=== PATIENT | female | born 1975 | race Caucasian/White ===

== ENCOUNTER → 2018-05-01 09:03 | Outpatient (CLI) | payer OTHER, SELFPAY ==
--- NOTE | 2018-05-01 09:05 | BI_ITS ---
MAMMOGRAPHY - BILATERAL SCREENING REASON FOR EXAM: Female, 42 years old. Routine annual screening examination. PERTINENT HISTORY: Non-contributory. TECHNIQUE: Digital bilateral breast sheri (3D mammographic acquisition) in the CC and MLO projections. 2-D mediolateral oblique (MLO) and craniocaudad (CC) views of both breasts were obtained. CAD: Full Field Digital Mammography with Computer Added Detection was performed. COMPARISON: None. Baseline examination. FINDINGS: Breast Composition: There are scattered areas of fibroglandular density. There are no dominant masses or suspicious calcifications. No other significant abnormalities are identified. BI/SCREENING MAMM (CAD), BILAT IMPRESSION: Negative screening mammogram. Yearly followup mammogram recommended. (A) ASSESSMENT CATEGORY: BIRADS Category 1: Negative. A letter regarding these results will be sent to the patient by the facility within 30 days. Approximately 10% of breast cancers are not detected by mammography. A normal mammogram should not delay biopsy of a clinically suspicious abnormality. [id number] Electronically Signed: Binu Olmstead MD at 9:36 EST Tel [phone], Service support ,
== END ==
PROVIDERS: Family Provider Family Medicine; PCP Family Medicine; Visit Provider Nurse Practitioner Women's Health
DX: Z12.31 Encounter for screening mammogram for malignant neoplasm of breast (principal)
CPT/HCPCS: 77063; 77067

== ENCOUNTER → 2019-05-30 12:59 | Outpatient (CLI) | payer OTHER, SELFPAY ==
--- NOTE | 2019-05-30 13:10 | BI_ITS ---
MAMMOGRAPHY - BILATERAL SCREENING REASON FOR EXAM: Female, 43 years old. Routine annual screening examination. PERTINENT HISTORY: Non-contributory. TECHNIQUE: Digital bilateral breast willie (3D mammographic acquisition) in the CC and MLO projections. 2-D mediolateral oblique (MLO) and craniocaudad (CC) views of both breasts were obtained. CAD: Full Field Digital Mammography with Computer Added Detection was performed. COMPARISON: Comparison is made with prior study dated May 01, 2018. FINDINGS: Breast Composition: There are scattered areas of fibroglandular density. There are no dominant masses or suspicious calcifications. No other significant abnormalities are identified. There has been no significant change since the prior study. BI/SCREEN MAMM (CAD) W/WILLIE BILAT IMPRESSION: Stable bilateral screening mammogram. Yearly follow-up mammogram recommended. (A) ASSESSMENT CATEGORY: BIRADS Category 1: Negative. A letter regarding these results will be sent to the patient by the facility within 30 days. Approximately 10% of breast cancers are not detected by mammography. A normal mammogram should not delay biopsy of a clinically suspicious abnormality. [id number] Electronically Signed: Binu Olmstead, at 13:59 EST , Service support ,
== END ==
PROVIDERS: Family Provider Family Medicine; PCP Family Medicine; Referring Provider Nurse Practitioner Women's Health; Visit Provider Nurse Practitioner Women's Health
DX: Z12.31 Encounter for screening mammogram for malignant neoplasm of breast (principal)
CPT/HCPCS: 77063; 77067

== ENCOUNTER → 2020-05-31 07:41 | Outpatient (CLI) | payer OTHER, SELFPAY ==
[2019-05-30 13:41] VITALS: BMI 32.5
--- NOTE | 2020-05-31 07:44 | BI_ITS ---
MAMMOGRAPHY - BILATERAL SCREENING REASON FOR EXAM: Female, 44 years old. Routine annual screening examination. PERTINENT HISTORY: Non-contributory. TECHNIQUE: Digital bilateral breast willie (3D mammographic acquisition) in the CC and MLO projections. 2-D mediolateral oblique (MLO) and craniocaudad (CC) views of both breasts were obtained. CAD: Full Field Digital Mammography with Computer Added Detection was performed. COMPARISON: Comparison is made with prior study dated 05/30/2019 and 05/01/2018. FINDINGS: Breast Composition: There are scattered areas of fibroglandular density. There are no dominant masses or suspicious calcifications. No other significant abnormalities are identified. There has been no significant change since the prior study. BI/SCREEN MAMM (CAD) W/WILLIE BILAT IMPRESSION: Stable bilateral screening mammogram. Yearly follow-up mammogram recommended. (A) ASSESSMENT CATEGORY: BIRADS Category 1: Negative. A letter regarding these results will be sent to the patient by the facility within 30 days. Approximately 10% of breast cancers are not detected by mammography. A normal mammogram should not delay biopsy of a clinically suspicious abnormality. [id number] Electronically Signed: Binu Olmstead, at 8:59 EST , Service support ,
== END ==
PROVIDERS: PCP Family Medicine; Referring Provider Nurse Practitioner Women's Health; Visit Provider Nurse Practitioner Women's Health
DX: Z12.31 Encounter for screening mammogram for malignant neoplasm of breast (principal)
CPT/HCPCS: 77063; 77067

== ENCOUNTER → 2020-06-06 | Outpatient (CLI) | payer OTHER, SELFPAY ==
[2020-06-06 08:35] VITALS: BMI 33.7
[2020-06-09 15:09] LABS: HPV APTIMA, High Risk Negative (Negative)
== END | disposition home or self-care (01) ==
LOC: LABSPEC 13:04
PROVIDERS: PCP Family Medicine; Referring Provider Nurse Practitioner Women's Health; Visit Provider Nurse Practitioner Women's Health
DX: Z12.4 Encounter for screening for malignant neoplasm of cervix (principal)
CPT/HCPCS: 87624; 88175; G0145

== ENCOUNTER → 2021-06-10 08:01 | Outpatient (CLI) | payer OTHER, SELFPAY ==
[2020-06-06 08:35] VITALS: BMI 33.7
--- NOTE | 2021-06-10 08:04 | BI_ITS ---
MAMMOGRAPHY - BILATERAL SCREENING REASON FOR EXAM: Female, 45 years old. Routine annual screening examination. PERTINENT HISTORY: Non-contributory. TECHNIQUE: Digital bilateral breast willie (3D mammographic acquisition) in the CC and MLO projections. 2-D mediolateral oblique (MLO) and craniocaudad (CC) views of both breasts were obtained. CAD: Full Field Digital Mammography with Computer Added Detection was performed. COMPARISON: Comparison is made with prior study of 05/31/2020 and 05/30/2019. FINDINGS: Breast Composition: There are scattered areas of fibroglandular density. There are no dominant masses or suspicious calcifications. No other significant abnormalities are identified. There has been no significant change since the prior study. BI/SCRN MAMM (CAD)W/WILLIE BILAT IMPRESSION: Stable bilateral screening mammogram. Yearly follow-up mammogram recommended. (A) ASSESSMENT CATEGORY: BIRADS Category 1: Negative. A letter regarding these results will be sent to the patient by the facility within 30 days. Approximately 10% of breast cancers are not detected by mammography. A normal mammogram should not delay biopsy of a clinically suspicious abnormality. [id number] Electronically Signed: Binu Olmstead MD at 9:19 EST , Service support ,
== END ==
PROVIDERS: PCP Family Medicine; Referring Provider Nurse Practitioner Women's Health; Visit Provider Nurse Practitioner Women's Health
DX: Z12.31 Encounter for screening mammogram for malignant neoplasm of breast (principal)
CPT/HCPCS: 77063; 77067

== ENCOUNTER → 2022-08-19 | Outpatient (CLI) | payer OTHER, SELFPAY ==
--- NOTE | 2022-08-19 07:55 | BI_ITS ---
MAMMOGRAPHY - BILATERAL SCREENING REASON FOR EXAM: Female, 46 years old. Routine annual screening examination. PERTINENT HISTORY: Non-contributory. TECHNIQUE: Digital bilateral breast willie (3D mammographic acquisition) in the CC and MLO projections. 2-D mediolateral oblique (MLO) and craniocaudad (CC) views of both breasts were obtained. CAD: Full Field Digital Mammography with Computer Added Detection was performed. COMPARISON: Comparison is made with prior study dated 06/10/2021 and 05/31/2020. FINDINGS: Breast Composition: There are scattered areas of fibroglandular density. There are no dominant masses or suspicious calcifications. No other significant abnormalities are identified. There has been no significant change since the prior study. BI/SCRN MAMM (CAD)W/WILLIE BILAT IMPRESSION: Stable bilateral screening mammogram. Yearly follow-up mammogram recommended. (A) ASSESSMENT CATEGORY: BIRADS Category 1: Negative. A letter regarding these results will be sent to the patient by the facility within 30 days. Approximately 10% of breast cancers are not detected by mammography. A normal mammogram should not delay biopsy of a clinically suspicious abnormality. [id number] Electronically Signed: Binu Olmstead MD at 8:52 EST ,
== END | disposition home or self-care (01) ==
PROVIDERS: PCP Family Medicine; Visit Provider Nurse Practitioner Women's Health
DX: Z12.31 Encounter for screening mammogram for malignant neoplasm of breast (principal)
CPT/HCPCS: 77063; 77067

== ENCOUNTER → 2023-08-24 | Outpatient (CLI) | payer OTHER, SELFPAY ==
--- NOTE | 2023-08-24 08:12 | BI_ITS ---
MAMMOGRAPHY - BILATERAL SCREENING REASON FOR EXAM: Female, 47 years old. Routine annual screening examination. PERTINENT HISTORY: Non-contributory. TECHNIQUE: Digital bilateral breast willie (3D mammographic acquisition) in the CC and MLO projections. 2-D mediolateral oblique (MLO) and craniocaudad (CC) views of both breasts were obtained. CAD: Full Field Digital Mammography with Computer Added Detection was performed. COMPARISON: Comparison is made with prior study dated August 19, 2022 and June 10, 2021. FINDINGS: Breast Composition: There are scattered areas of fibroglandular density. There are no dominant masses or suspicious calcifications. No other significant abnormalities are identified. There has been no significant change since the prior study. BI/SCRN MAMM (CAD)W/WILLIE BILAT IMPRESSION: Stable bilateral screening mammogram. Yearly follow-up mammogram recommended. (A) ASSESSMENT CATEGORY: BIRADS Category 1: Negative. A letter regarding these results will be sent to the patient by the facility within 30 days. Approximately 10% of breast cancers are not detected by mammography. A normal mammogram should not delay biopsy of a clinically suspicious abnormality. [id number] Electronically Signed: Binu Olmstead MD at 10:55 EST ,
--- OUTSIDE RECORDS SUMMARY | 2023-08-24 08:39 | XMS RPT_ITS | CCD ---
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 Role Phone Cecil LYNN, Amna Payne Unavailable OBDULIO IBARRA Attending Unavailable DALLAS, OBDULIO Primary Care Unavailable DALLASOBDULIO Admitting Unavailable DALLAS, OBDULIO PAC Consulting Unavailable PROVIDER, UNKNOWN Consulting Unavailable Medications Completed/Discontinued Medications Medication Drug Class(es) Dates Sig (Normalized) Sig (Original) pravastatin sodium 40 mg oral tablet (4 sources) HMG-CoA Reductase Inhibitor Start: 03-25-2017 PRAVACHOL 40 MG TABS PRAVASTATIN SODIUM [id number] Amna Jacob NP Problems Active Problems Problem Classification Problem Date Documented Date Episodic/Chronic Disorders of lipid metabolism (1 source) Mixed hyperlipidemia; Translations: [Mixed hyperlipidemia] Onset: 06-05-2023 Chronic Other aftercare (1 source) Other nursing home (current) drug therapy; Translations: [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] Onset: 06-05-2023 Episodic Unclassified (2 sources) Gynecologic examination ; Translations: [Encounter for gynecological examination (general) (routine) without abnormal findings] Onset: 03-25-2017 03-25-2017 Past or Other Problems Problem Classification Problem Date Documented Da te Episodic/Chronic Other infections (4 sources) H/O: viral illness; Translations: [Personal history of other infectious and parasitic diseases] Onset: 03-25-2017 03-25-2017 Episodic Results Test Name Value Interpretation Reference Range Facil ity Vital Signs Date Time Vital Sign Value Performing Clinician Facility 03-25-2017 13:37-0400 BMI (Body Mass Index) 30.53 kg/m2 Amna Jacob NP [facility] 03-25-2017 13:37-0400 Body Temperature 98 [degF] Amna Jacob [facility] 03-25-2017 13:37-0400 Body Temperature 98.01 [degF] Amna Jacob [facility] 03-25-2017 13:37-0400 BP Diastolic 82 mm[Hg] Amna Jacob NP [facility] 03-25-2017 13:37-0400 BP Systolic 123 mm[Hg] Amna Jacob [facility] 03-25-2017 13:37-0400 Height 167.64 cm Amna Jacob NP [facility] 03-25-2017 13:37-0400 Pulse (Heart Rate) 79 /min Amna [facility] 03-25-2017 13:37-0400 Respiratory Rate 16 /min Amna Jacob NP [facility] 03-25-2017 13:37-0400 Weight 85.82 kg Amna Jacob NP [facility] Encounters Encounter Date Encounter Type Care Provider Facility Start: 06-05-2023 End: 06-05-2023 ambulatory [facility] Procedures Date Procedure Procedure Detail Performing Clinician Start: 03-25-2017 Gynecologic examination Routine gynecological examination Amna Jacob NP Start: 03-25-2017 End: 03-25-2017 Documentation of current medications Amna Jacob NP Plan of Treatment Date Care Activity Detail Author Start: 03-25-2017 End: 03-25-2017 Appointment [facility] Payers Date Payer Category Payer Unknown [id number] Unknown [id number] Summary Purpose Family History No Family History Records Found Advance Directives No Advanced Directives Records Found Additional Source Comments INFORMATION SOURCE (unrecogn ized section and content) FOR RECORDS PERTAINING TO PATIENTS WHO ARE OR HAVE BEEN ENROLLED IN A CHEMICAL DEPENDENCY/SUBSTANCEABUSE PROGRAM, SOME INFORMATION MAY BE OMITTED. This clinical summary was aggregated from multiple sources. Caution should be exercised in using it in the provision of clinical care. This summary normalizes information from multiple sources, and as a consequence, information in this document may materially change the coding, format and clinical context of patient data. In addition, data may be omitted in some cases. CLINICAL DECISIONS SHOULD BE BASED ON THE PRIMARY CLINICAL RECORDS. [facility]. provides no warranty or guarantee of the accuracy or completeness of information in this document.
== END | disposition home or self-care (01) ==
LOC: OPBI 08:12
PROVIDERS: PCP Family Medicine; Referring Provider Nurse Practitioner Women's Health; Visit Provider Nurse Practitioner Women's Health
DX: Z12.31 Encounter for screening mammogram for malignant neoplasm of breast (principal)
CPT/HCPCS: 77063; 77067

== ENCOUNTER → 2024-07-19 | Outpatient (CLI) | payer OTHER, SELFPAY ==
--- NOTE | 2024-07-19 07:43 | NM_ITS ---
CLINICAL: 48-year-old female with history of thyroid nodularity. I-123 THYROID UPTAKE and SCAN COMPARISON: None available FINDINGS: The patient was administered a 331 uCi I-123 capsule by mouth. The 4-hour I-123 radioactive iodine thyroidal uptake was calculated to be 27.3 % (normal 5 to 25 %). The 24-hour I-123 radioactive iodine thyroidal uptake was calculated to be 42.3 % (normal 5 to 40 %). The I-123 thyroid scan demonstrates homogeneous radiopharmaceutical concentration throughout both lobes of a vaguely U-shaped thyroid gland. There are no colloidal parenchymal hypofunctioning-cold nodules noted in either lobe of the thyroid gland. The right lobe is larger than left. NM/Thyroid Uptake Single or Mult IMPRESSION: 1. ABNORMAL ELEVATED 4- and 24-hour I-123 radioactive iodine thyroidal uptakes. 2. The I-123 thyroid scan in conjunction with the iodine uptake values, is most consistent with the presence of a low-grade diffuse toxic goiter. Correlation with in vitro thyroid function studies is recommended if not previously obtained. Electronically Signed: James Quinn DO at 11:03 EST ,
== END | disposition home or self-care (01) ==
LOC: NM 07:43
PROVIDERS: PCP Family Medicine; Referring Provider Internal Medicine Endocrinology, Diabetes & Metabolism; Visit Provider Internal Medicine Endocrinology, Diabetes & Metabolism
DX: E05.20 Thyrotoxicosis with toxic multinodular goiter without thyrotoxic crisis or storm (principal)
CPT/HCPCS: 78012; A9516

== ENCOUNTER → 2024-08-15 | Outpatient (CLI) | payer OTHER, SELFPAY ==
[2024-08-15 18:03] LABS: Free T3 2.3 pg/mL (2.18-3.98); T4 Free Direct 0.57 ng/dL (0.76-1.46); Thyroid Stim Hormone (TSH) 0.059 uIU/mL (0.358-3.740)
== END | disposition home or self-care (01) ==
LOC: LAB 16:13
PROVIDERS: PCP Family Medicine; Referring Provider Internal Medicine Endocrinology, Diabetes & Metabolism; Visit Provider Internal Medicine Endocrinology, Diabetes & Metabolism
DX: E05.20 Thyrotoxicosis with toxic multinodular goiter without thyrotoxic crisis or storm (principal)
CPT/HCPCS: 36415; 84439; 84443; 84481

== ENCOUNTER → 2024-08-25 | Outpatient (CLI) | payer OTHER, SELFPAY ==
--- NOTE | 2024-08-25 07:25 | BI_ITS ---
PROCEDURE: SCRN MAMM (CAD)W/WILLIE BILAT REASON FOR EXAM: F, Age 48 y/o, no family history. Routine mammographic follow-up. TECHNIQUE: Bilateral screening digital breast tomosynthesis with 2D and 3D images. Computer aided detection. COMPARISON: Prior exam(s) dating back to August 24, 2023.. FINDINGS: There are scattered areas of fibroglandular density. Stable examination. No suspicious masses, areas of developing architectural distortion, or suspicious calcifications. BI/SCRN MAMM (CAD)W/WILLIE BILAT IMPRESSION: BI-RADS 1: NEGATIVE. RECOMMEND ANNUAL MAMMOGRAPHIC SCREENING. Follow-up code: Routine Follow-up The patient will be notified of the results by letter. Reading Location: [id number]
[2024-08-29 19:08] LABS: HPV APTIMA, High Risk Negative (Negative)
== END | disposition home or self-care (01) ==
LOC: OPBI 07:24
PROVIDERS: PCP Family Medicine; Referring Provider Nurse Practitioner Women's Health; Visit Provider Nurse Practitioner Women's Health
DX: Z12.31 Encounter for screening mammogram for malignant neoplasm of breast (principal)
CPT/HCPCS: 77063; 77067; 87624; 88175; G0145

== ENCOUNTER → 2024-09-19 | Outpatient (CLI) | payer OTHER, SELFPAY ==
[2024-09-19 18:55] LABS: Free T3 2.8 pg/mL (2.18-3.98); Thyroid Stim Hormone (TSH) 0.631 uIU/mL (0.300-4.200)
== END | disposition home or self-care (01) ==
LOC: LAB 14:23
PROVIDERS: PCP Family Medicine; Referring Provider Internal Medicine Endocrinology, Diabetes & Metabolism; Visit Provider Internal Medicine Endocrinology, Diabetes & Metabolism
DX: E05.20 Thyrotoxicosis with toxic multinodular goiter without thyrotoxic crisis or storm (principal)
CPT/HCPCS: 36415; 84439; 84443; 84481

== ENCOUNTER → 2024-10-28 | Outpatient (CLI) | payer OTHER, SELFPAY ==
[2024-10-28 10:45] LABS: Vitamin D,25 Hydroxy 41.1 ng/mL (30-100)
[2024-11-01 17:08] LABS: Thyroid Stim Immunoglob <0.10 IU/L (0.00-0.55)
== END | disposition home or self-care (01) ==
LOC: LAB 09:11
PROVIDERS: PCP Family Medicine; Referring Provider Surgery; Visit Provider Surgery
DX: E05.20 Thyrotoxicosis with toxic multinodular goiter without thyrotoxic crisis or storm (principal)
CPT/HCPCS: 36415; 82306; 84445

== ENCOUNTER 2024-11-10 15:56 | Observation (INO) | payer OTHER, SELFPAY ==
[2024-11-10] VITALS (20 sets, daily range): BP systolic 127–176; BP diastolic 63–155; PULSE 76–136; RESP 14–18; TEMP 36.3–37.4; O2SAT 92–100; BMI 33.3
[2024-11-10 09:57] LABS: Internal QC Validated? YES +Cl - CLEAR BKGD
[2024-11-10 09:58] LABS: Pregnancy, Urine Negative Negative
[2024-11-10] MEDS: Lactated Ringers 1,000 ML 15 ML IV (10:10)
--- NOTE | 2024-11-10 10:20 | PCM.PRE.AN2 ---
ASA Classification* ASA Classification ASA Classification: 2 Assessment & Plan Anesthesia* Anesthesia Assessment Anesthesia Assessment: Discussed sedation and/or anesthesia options, risks, benefits, and alternatives with patient/parents/legal guardian/POA. Questions invited. The patient/parents/legal guardian/POA seems to understand and agrees to proceed with anesthesia plan. Reviewed the physical assessment, medical history, allergy history and patient home medications list prior to surgery/procedure/anesthetic and documented any changes. Performed airway and anesthesia risk assessments. Anesthesia Type Anesthesia Type: General History Source History Obtained from:: Patient and Chart Anesthesia Focused Assessment* Temperature: 99.3 F Pulse Rate: 76 Blood Pressure: 144/79 Respiratory Rate: 18 Pulse Ox: 100 Oxygen Delivery Method: Room Air Airway Assessment Mouth opens: >3 cm Mallampati Score: III Teeth Condition: Intact Focused Labs Anesthesia Preop lab: CBC CHEMISTRY TSH 0.631 uIU/mL (0.300-4.200) 09/19/24 14:34 09/19/24 COAG Urine Test Negative Negative 11/10/24 09:48 11/10/24 [facility] Clinic Negative 04/01/18 11:27 04/01/18 Pre-Assessment Diagnosis/Proposed Procedure Planned Operative Procedure(s): Thyroidectomy-total with intraoperative nerve monitoring Anesthesia History Anesthesia History - almond pan finisher: Anesthesia History - almond pan finisher Hx Hospitalization No 11/01/24 10:11 Any Problems With Anesthesia No 11/01/24 10:11 Cholinesterase deficiency No 11/01/24 10:11 You/Your Family Experience No 11/01/24 10:11 fever (hyperthermia) with Relationship Recent Exposure to Contagious No 11/10/24 10:05 Disease Does patient have nerve No 11/01/24 10:11 stimulator Patient instructed to have device shut off --Does patient have Pacemaker No 11/10/24 10:05 or ICD? When Was Last Pacemaker Check QUESTION #4 FULL TEXT: You/Your Family Experience fever (hyperthermia) with Anesthesia Last Oral Intake Last Oral intake: Last Oral Intake NPO since 21:00 11/10/24 10:05 Meds taken in AM with sips of No 11/10/24 10:05 water? Meds patient instructed to take am of surgery PONV PONV - almond pan finisher: PONV - almond pan finisher Female Yes 11/01/24 10:11 HX of Motion Sickness No 11/01/24 10:11 HX of N/V After Surgery No 11/01/24 10:11 Non-Smoker Yes 11/01/24 10:11 Duration of Surgery greater No 11/01/24 10:11 than 60 minutes Number of Risk Factors 2 11/01/24 10:11 PONV Score Moderate Risk 11/01/24 10:11 Height & Weight Height & Weight: Anesthesia: Height & Weight Height 5 ft 5 in 11/10/24 10:05 Weight: 91 kg 11/10/24 10:05 Body Mass Index (BMI) 33.3 11/10/24 10:05 Respiratory Assessment Respiratory Assessment - almond pan finisher: Respiratory Tract Infection Hx - almond pan finisher Hx Respiratory Tract Infection No 11/01/24 10:11 STOP Sleep Apnea STOP Sleep Apnea - almond pan finisher: STOP Sleep Apnea - almond pan finisher Hx Hypertension No 11/01/24 10:11 Hx Sleep Apnea No 11/01/24 10:11 CPAP BIPAP Do you snore loudly (louder No 11/01/24 10:11 than talking or can be heard Do you often feel tired/ No 11/01/24 10:11 fatigued/ sleepy during daytime? Has anyone observed you stop No 11/01/24 10:11 breathing during sleep? STOP Results Negative 11/01/24 10:11 QUESTION #5 FULL TEXT : Do you snore loudly (louder than talking or can be heard through closed doors)? 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 Specify any problems Hx of Preganancy in last 3 No 11/01/24 10:11 Months Nurse Filling Out Transfusion VCHRISTIN 11/01/24 10:11 & Questions: Date: 11/01/24 11/01/24 10:11 Time: 10:12 11/01/24 10:11 Patient unable to answer at this time (ie. confused, unrespo /Reproduction History /Reproductive History - almond pan finisher: /Reproductive Hx- almond pan finisher Hx Now No 11/01/24 10:11 Gestational Age (in weeks): EDC: Hx Hx Para Hx Section SAB No 11/01/24 10:11 Active Medications Active Medications: Current Medications Generic Name Dose Route Start Last Admin Trade Name Freq PRN Reason Stop Dose Admin Lactated Ringer's 1,000 mls @ 15 mls/hr 11/10/24 09:45 11/10/24 10:10 IV 15 mls/hr .Q48H CAMRYN Administration PFSH Medical History (Updated 11/01/24 @ 10:11 by Cindi Wills) Wears contact lenses Thyroid disease Non-smoker Toxic nodular goiter Hyperlipidemia Home Medications ?Medication ?Instructions ?Recorded ?Last Taken ?Type pravastatin 40 mg tablet 40 mg PO QHS CHOLESTEROL 04/01/18 11/09/24 21:00 History cholecalciferol (vitamin D3) 125 125 mcg PO DAILY SUPPLEMENT 11/01/24 11/09/24 21:00 History mcg (5,000 unit) tablet (Vitamin D3) methimazole 5 mg tablet 5 mg PO QHS THYROID 11/01/24 11/09/24 21:00 History Allergy/AdvReac Type Severity Reaction Status Date / Time No Known Allergies Allergy Verified 11/10/24 10:04 Family History Father Hyperlipidemia Sister No problems noted. Surgical History (Updated 11/01/24 @ 10:11 by Cindi Wills) Hx of cholecystectomy Social History Smoking Status: Never smoker alcohol intake: current alcohol intake frequency: holidays/special occasions only substance use type: does not use caffeine: Yes what type of physical activity do you participate in: walking and running seatbelt use: always do you feel safe at home: Yes additional social history: Edu[employer]- [employer] Patient works at [employer] Review of Systems (Anesthesia) ROS Narrative System reviewed and no additional complaints, except as documented.
[2024-11-10 10:47] LABS: Hemoglobin 14.2 g/dL (12.0-15.0); Mean Corp Hgb Conc 34.6 g/dL (32-36); Mean Corpuscular Hgb 29.6 pg (27.0-32.0); Mean Corpuscular Volume 85.4 fL (81-99); Mean Platelet Vol. 8.9 fl (6.2-12.0); Platelet Count 238 K/mm3 (150-450); RBC Distribution Width CV 12.4 % (11.6-14.6); RBC Distribution Width SD 38.3 fl (35.1-43.9); White Blood Count 7.3 K/mm3 (4.4-11.0)
--- NOTE | 2024-11-10 11:00 | HP.PCM_ITS ---
History and Physical Date of Admission: 11/10/24 OFFICE VISIT Date of Service: 10/28/24 MR#: [id number] Acct: [id number] Name: QASIM HEAD Rep #: [id number] : 1975 Provider: Dr. Mauri Uriostegui MD Age/Sex: 49/F Location: [facility] Status: Signed Intake Vital Signs 10/06/2513:30 10/29/2507:10 Height 5 ft 5 in 5 ft 5 in Weight: 203 lb 2 oz 205 lb 6 oz BMI 33.7 34.2 BP 150/84 H 150/83 H Blood Pressure Location Rt brachial Rt brachial Position Sitting Sitting Respiration 17 Pulse 78 63 Pulse Source Monitor Monitor Temp 97.2 F L Temp Source Temporal Pulse Oximetry (%) 97 100 Oxygen Delivery Method room air room air Intake Visit Reasons: THYROIDECTOMY CONSULT Chief Complaint: thyroidectomy consult Is patient in pain?: No Allergies No Known Allergies Allergy (Verified 10/28/24 08:11) Medications ?Medication ?Instructions ?Recorded ?Confirmed ?Type pravastatin 40 mg tablet 40 mg PO DAILY 04/01/18 10/28/24 History multivitamin 1 tab PO DAILY 06/06/20 10/28/24 History methimazole 5 mg tablet 5 mg PO QDAY #90 tabs 08/16/24 10/28/24 Rx PFSH Medical History Toxic nodular goiter Hyperlipidemia Surgical History Hx of cholecystectomy Family History Father HyperlipidemiaSister No problems noted. Social History Smoking Status: Never smoker alcohol intake: current alcohol intake frequency: holidays/special occasions only substance use type: does not use caffeine: Yes what type of physical activity do you participate in: walking and running seatbelt use: always do you feel safe at home: Yes additional social history: Eduardo- Banker Patient works at [employer] and [employer] HPI HPI HPI: Patient is a 49-year-old female who presents for consultation related to the request for total thyroidectomy. They are referred for surgical consultation from Dr. Skinner of endocrinology. Patient states that she was initially told that her thyroid was sick at her well visit in 2022. Upon reaching this observation her PCP offered some additional lab work but she had already completed blood work that year so she declined. Moving forward to her follow-up well visit in May 2024 blood work was completed showing apparent elevation of her thyroid functions and she was told there was a problem. This was followed with official thyroid ultrasound where 3 separate nodules (1 TI-RADS 3 and 2 TI-RADS 4 nodules) were discovered. Patient states that she then went through [facility] for the fastest turnaround and underwent FNA biopsy x 3 on [facility]. Ultimately she was told all 3 returned with benign results. After receiving these results she was referred to Dr. Skinner of endocrinology June of this year. It was at that time thyroid uptake scan was requested and she was initiated on 10 mg methimazole. With gradual improvements in her thyroid functions she was decreased further dose to 5 mg daily. For her part Mrs. Head states that prior to being evaluated by endocrinology she was doing [employer] 5 days a week and in some of the best shape of her life. Now since she was told that her blood work has normalized she feels worse. 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 They do not complain of a new cough. They do not appreciate new voice changes. They do have a history of snoring. They do not have a family history of thyroid disorders or endocrinopathies. There is no history of prior radiation exposure. Previous work-up has included thyroid ultrasound. This study was performed on 06/08/2024 and showed a right thyroid lobe measuring 6.2 x 2.4 x 2.4 cm. Within this lobe radiology identified 2 nodules measuring 2.1 x 1.8 x 2.5 cm and was rated a TI-RADS 4 nodule. A second nodule was described and measured 2.4 x 2.4 x 3.0 cm. This was rated a TI-RADS 3. The left thyroid lobe measured 4.0 x 1.8 x 1.6 cm. Within this lobe radiology identified a nodule measuring 2.3 x 1.2 x 2.2 cm with a TI-RADS 4 appearance. An FNA has been performed of each nodule and cytopathology showed the right TI-RADS 3 and left TI-RADS 4 nodules to be clearly benign. The right TI-RADS 4 nodule, however, received a Ellsworth 3 diagnosis and went on to be processed by [facility] which gave a benign result. Other tests include: TSH: 0.63, free T40.8, free T3: 2.8 (09/19/2024) ROS General General: No weight change, appetite, fatigue, colon cancer, breast cancer or weakness HEENT HEENT: No difficulty swallowing, eye injury, eye surgery, swollen glands or hoarseness Endo Endocrine: Yes thyroid disease; No diabetes mellitus, thyroid cancer, Hair loss, heat intolerance or cold intolerance Skin Skin: No rash or changing moles Musc Musculoskeletal: No back problems, arthritis, rheumatoid arthritis, gout or nadege nt pain Cardio Cardiovascular: No murmur, pacemaker, heart disease, atrial fibrillation, high blood pressure, heart attack, heart stent, palpitations, shortness of breath with exertion or chest pain Psych Psychiatric: No depression, anxiety or hearing voices Resp Respiratory: No shortness of breath, No sleep apnea, No cough, No COPD, No asthma, No emphysema and No wheezing Gastro Gastrointestinal: No abdominal pain, No nausea or vomiting, No diarrhea, No constipation, No blood in stool, No acid reflux, No hemorrhoids, No ulcers, No gallbladder problem and No black,tarry stools Roque Hematologic: No blood thinners, No blood disorders, No bleeding, No anemia and No blood clots Neuro Neurologic: No numbness, No tingling and No weakness Exam Const General: cooperative, comfortable and no acute distress Neck Other: Markedly enlarged right thyroid lobe that is soft and nontender. More normally proportioned left thyroid lobe that is also nontender. No cervical lymphadenopathy appreciated. On my own ultrasound exam identify a right thyroid lobe measuring 5.9 x 2.7 x 2.0 cm. There is a solid upper pole nodule and a partially cystic lower pole nodule. The left thyroid lobe measures 4.6 x 1.6 x 1.4 cm. It exhibits a bilobed appearance. Normal lymph nodes are visualized along the bilateral jugular chains Assessment and Plan Assessment and Plan (1) Toxic nodular goiter: Status: Acute Comment: Patient 49-year-old female who is referred for consideration of total thyr oidectomy after diagnosis of hyperthyroidism and multinodular goiter. She was previously biopsied with FNA x 3 and all 3 nodules have been given benign results either via cytopathology or with next generation sequencing (right TI- RADS 4 nodule). Toxic adenoma was excluded with thyroid uptake scan. Autoimmune thyroiditis suspected. Patient did not undergo antibody testing and wishes to know this result so she will be sent for lab work. Additionally, through a conversation about my recommendation for total thyroidectomy I described the importance of having a sufficient vitamin D level so this lab will be checked as well. A substantial portion of today's visit was then spent with discussion on total thyroidectomy and its attendant risk?specifically including hypoparathyroidism and recurrent laryngeal nerve injury. Hand drawing was made to illustrate these important points. I described the use of loupe magnification and nerve monitoring to mitigate these risks. I also described th e alternative with radioactive iodine therapy and why favor surgery?including discussion on the variable efficacy of GALLAGHER and possible need for redosing. Patient asked a number of insightful questions but these were answered to her satisfaction. Plan: ? Total thyroidectomy with intraoperative nerve monitoring. Postoperatively patient will be admitted to overnight observation for monitoring of her calcium ? Post clinic vitamin D hydroxy and anti-TSI antibodies I have examined the patient the following changes are noted: Patient denies any questions for today's procedure but I have updated her that her vitamin D was within normal limits and her anti-TSI antibodies were not elevated. Therefore this makes it most likely this represents a toxic nodular goiter. I reviewed the previous conversation about the operation and postoperative expectations. Several questions were taken from patient's family. They denied any further questions. Consents were confirmed. Will proceed to the operating room for total thyroidectomy with intraoperative nerve monitoring. Postoperatively patient to be admitted to the hospital for observation.
--- NOTE | 2024-11-10 11:00 | PARA_PTH ---
PATIENT: QASIM CARLIN LOC: [facility] U#:[id number] AGE/SX: 49/F ROOM: GA312 RE11/10/[address]: Dr. Mauri Uriostegui MD : 1975 BED: 1 DIS: 11/11/2024 SPEC #: [id number] RECD: 11/10/24 15:44 STATUS: ARJUN EM #: [id number] DALI: 11/10/24 11:[address]: Mauri Uriostegui DEPT: SURGICAL PATHOLOGY RECD BY: Bryan Newell ENTERED: 11/10/24 15:13 SP TYPE: PARATHY BÁRBARA DR: Irina Sanz PA-C Tissues: Parathyroid Procedures: Frozen Section (charge) Surgery Specimen Level IV Surgery Specimen Level V HEADER OPERATION: Thyroidectomy- total with intraoperative nerve monitoring PRE-OP DIAGNOSIS: Toxic nodular goiter TISSUE SUBMITTED: A- Rule out left superior parathyroid, B- Thyroid *stitch emerson left superior pole* FROZEN SECTION DIAGNOSIS A. Thyroid tissue, thyroidectomy: Parathyroid tissue. MS/mr 11/11/2024 MICROSCOPIC DIAGNOSIS A. Left superior parathyroid, toxic nodular goiter, biopsy: * Benign parathyroid tissue. B. Thyroid, total thyroidectomy: * Multinodular thyroid. * Focal scar with a few siderophages, consistent with a previous biopsy site. MICROSCOPIC DESCRIPTION Slides are reviewed. GROSS DESCRIPTION A. Received fresh for intraoperative consultation in a container labeled with the patient's name, date of , and rule out left superior parathyroid is a 0.3 x 0.2 x 0.1 cm fragment of red-estrada soft tissue. The specimen is submitted entirely for frozen section analysis. The remnant tissue is submitted entirely in A1. [facility] 11-10-2024 B. Received in formalin in a container labeled with the patient's name, date of , and thyroid-stitch emerson left superior pole is a 23.6 g, oriented total thyroidectomy specimen with a long suture indicating the left superior pole. The right lobe is 5.0 x 2.6 x 2.5 cm, the isthmus is approximately 1.7 x 1.6 x 0.6 cm, and the left pole is 4.0 x 1.8 x 1.5 cm. Right anterior is inked red, anterior isthmus is orange, left anterior is green, and posterior is inked black. The right and left lobes are from the isthmus, and each are serially sectioned from superior to inferior: The right lobe is serially sectioned from superior to inferior into 12 slices to reveal 2 prominent nodules. The first nodule is situated within the superior half of the specimen, in slices 1-5, appears encapsulated, and is 2.5 x 2.1 x 2.0 cm. The cut surfaces exhibit red-brown hemorrhage with scattered estrada gelatinous areas. The nodule grossly appears to abut the inked anterior and posterior capsular surface, and is situated approximately 0.8 cm from the isthmus. The second nodule of the right lobe is throughout the inferior half of the specimen, within slices 5-12, appears encapsulated, and is 3.0 x 2.8 x 1.4 cm. The cut surfaces exhibit red-brown hemorrhage with scattered estrada-brown, somewhat gelatinous areas. This second nodule focally abuts the inked anterior capsular surface, and is 0.2 cm from the posterior capsule, and 0.5 cm from the isthmus. The nodules are situated approximately 0.4 cm from each other. The remaining cut surfaces exhibit red-brown, spongy parenchyma. The isthmus is trisected to reveal red-brown, unremarkable spongy parenchyma. No nodules are identified. The left lobe is serially sectioned from superior to inferior into 13 slices to reveal 2 estrada-orange nodules within the mid-inferior aspect. Nodule #1 is within slices 7-10, and is 1.0 x 0.7 x 0.6 cm. It abuts the anterior inked capsule, and is 0.6 cm from the posterior capsule. The cut surfaces are estrada-brown with central estrada gelatinous material. The second nodule is within slices 7-13, comes to within 0.1 cm of the first nodule, and is 1.9 x 1.2 x 0.8 cm. This comes to within 0.1 cm of the inked anterior and posterior capsular surface. Nodule #1 and nodule #2 are situated at least 0.2 cm from the isthmus. The remaining cut surfaces exhibit red-brown, typical parenchyma. [place] Supervisor sections:RIGHT LOBE: B1-3. Superior nodule from slices 1-5 (entire capsule submitted)B4-10. Inferior nodule from slices 5-12 (entire capsule submitted) ISTHMUS/LEFT LOBE:B11. Unremarkable isthmus and slice 3 of unremarkable superior left [id number]. Nodules 1 and 2, entirely submitted (entire capsules from slices 7-13) B 11-14-2024 CPT:54948,58239,18614
[2024-11-10 11:01] LABS: Ionized Calcium 1.23 mmol/L (1.09-1.30)
[2024-11-10 11:20] LABS: Anion Gap 9 (5-15); BUN 14 mg/dL (4-19); BUN/Creat Ratio 15.9 RATIO (10-20); Calcium,Total 9.1 mg/dL (7.6-11.0); Chloride 107 mmol/L (98-108); Creatinine, Serum 0.87 mg/dL (0.70-1.20); EST Glomerular Filtration Rate 83 (>60); Glucose 89 mg/dL (70-99); Sodium Level 139 mmol/L (133-145)
--- NOTE | 2024-11-10 16:00 | OP.PCM_ITS ---
Operative Report (Standard) Operative Information Date of Procedure: 11/10/24 Pre-Operative Diagnosis: Hyperthyroidism and multinodular goiter Post-Operative Diagnosis: Same Surgery/Procedure Performed: 1. Total thyroidectomy with intraoperative nerve m onitoring 2. Parathyroid autotransplantation cytotechnologist supervisor: Yes Dealer Sales Rep: Shirin Montez Tasks completed by first officer and flight instructor: Opening & closing, Hemostasis: Electrocautery and Retracting Additional certified physician assistant?: Yes Additional Airline Customer Service Agent #2: Mercy Morfin Tasks completed by certified physician assistant #2: Hemostasis: Electrocautery and Retracting Type of Anesthesia: General/Supplemental RN Documented Start/Stop Times: Operation Date: 11/10/24 11:00 Case Time Into Pre-Op 11/10/24 09:35 Out of Pre-Op 11/10/24 11:08 Anesthesia Start 11/10/24 11:12 Into Room 11/10/24 11:12 Procedure Start 11/10/24 11:51 Procedure End 11/10/24 15:56 Anesthesia End 11/10/24 16:05 Out of Room 11/10/24 16:05 Into Recovery 11/10/24 16:07 Procedure Start Time: 11:51 Procedure Stop Time: 15:56 Select all DRAINS/GRAFTS/IMPLANTS that apply: None Estimated Blood Loss: 50 Specimen collected: Yes Description of specimen(s) removed: 1. Thyroid with stitch marking left superior pole 2. Frozen section for left superior parathyroid Description of surgery: After appropriate identification in the preoperative holding area, the patient was brought to the operating room where she was positioned supine with arms tucked taking care to pad the ulnar nerve bilaterally. Induction of general endotracheal anesthetic was begun and a NIMS tube was placed under glidescope view to confirm coaptation with the vocal cords anteriorly. Tube was then secured and the patient was positioned with a shoulder roll so that her head was in extension but supported. The Nims electrodes were placed and connected to the monitor. After slight readjustment of the tube, we had appropriate resistance showing on the monitor and tapping at the level of the cricoid produce a graphical representation of the impulse on the monitor. Patient's neck was then prepped and draped in usual sterile fashion and a formal timeout w as conducted with those present. The lowest skin fold to the sternal notch was selected for incision site (this resided approximately 1 and half fingerbreadths cephalad to the notch). An incision was extended for 2.5 cm on either side of midline. Electrocautery was used to deepen this incision through the level of the platysma. Subplatysmal flaps were raised with the use of electrocautery and blunt dissection. The strap muscles were then divided along the medial raphe bringing us down to the level of the thyroid. Capsular attachments to the thyroid were divided with the use of LigaSure. Retractors were placed providing visualization of the superior pole of the right lobe of the thyroid. This pole had an exceptionally high extent and was bilobed in morphology making the dissection somewhat more complex than usual. The vessels of the superior pole were sequentially ligated with the use of the LigaSure device. We then moved inferiorly and divided those polar vessels with LigaSure. I was careful to take these vessels right against the thyroid capsule and the left the inferior parathyroid gland was grossly identified and bluntly removed from the thyroid capsule to preserve it intact. With the poles freed the thyroid was mobilized medially by bluntly the remaining strap muscle fibers from the thyroid capsule and using LigaSure to divide the middle thyroid vein. While retracting the thyroid medially I conducted blunt dissection parallel to the presumed course of the recurrent laryngeal nerve to expose the tracheoesophageal groove. Although I tested for the nerve on multiple occasions I did not initially hear an audible signal and tediously dissected more deeply/medially. Here I encountered a positive signal for the left recurrent laryngeal nerve and was shortly thereafter able to visualize the nerve. Which I traced distally to the laryngeal entry point in the cricothyroid membrane. During this dissection I did identify, grossly, the right superior parathyroid gland which appeared well-perfused and attached near the nerve termination. The nerve positively identified, I began carefully dissecting off the remaining tracheal attachments around the area of the nerve. A thyroid remnant was established in the area of the ligament of Lopez and this was secured with 4-0 silk ligatures. The specimen side was then sharply amputated. Once the right thyroid lobe was elevated at least 2 to 3 mm anterior to the insertion point, electrocautery was used to remove the isthmus from the anterior surface of the trachea. Superiorly along the trachea examined for possible pyramidal lobe extension but did not find any additional thyroid tissue so my dissection was carried to the contralateral side with additional electrocautery taking care to avoid injury to the trachea. We then moved to removal of the left thyroid lobe with a similar technique taking care to remove the strap muscles from their capsular attachments to the lobe. It was notable that there was a significant adhesive burden between the thyroid capsule and these attachments but with intentional dissection they came away from the capsule. The superior pole vessels were taken individually with use of LigaSure energy. Shortly after taking the superior pole vessels I encountered what I felt represented the left superior parathyroid gland. During removal of the lateral attachments of the gland the parathyroid was suddenly avulsed from its polar artery in an unavoidable circumstance. Recognizing it as a probable parathyroid gland, a portion of this was submitted to pathology for frozen section to confirm its identity while the remaining tissue was kept in a moistened Telfa gauze for potential later autotransplantation. The inferior pole vessels and middle thyroid vein were then divided with LigaSure as we waited for the pathology result. Pathology did ultimately returned as consistent with parathyroid tissue and this was prepared for autotransplantation later in the case. As had been the case on the right side, the recurrent laryngeal nerve was difficult to visualize and was found somewhat deeper than its expected location. But after visualization I was q uickly able to obtain a Nims signal on the nerve and generally traced it to its distal insertion point within the larynx. Nims monitoring was used to identify a fairly anterior insertion point and a thyroid remnant was established with passage of a silk ligature to avoid risk for thermal injury to the nerve. Once this ligature was tied down I retested the nerve and again found the signal. With this thyroid tissue dissected, this permitted us a several millimeter margin between the thyroid gland and the course of the nerve so the remainder of the thyroid gland was removed with electrocautery taking care to protect the trachea below. Our final specimen was marked with a 3-0 Vicryl stitch through the left upper pole and passed off the field for pathologic processing. Both surgical cavities were inspected for hemostasis after irrigation. There was mild oozing bilaterally in proximity to the ligament of Lopez and the nerve insertion and Surgicel hemostatic agent was placed bilaterally while pressure was applied. Once this pressure was relieved, the right surgical cavity was again inspected and we found some mild oozing on the superior anterior aspect of the trachea which was addressed with very selective electrocautery. Surgicel was replaced on both sides and remained white in color without evidence of ongoing bleeding. During this inspection I also confirmed the presence of a left inferior and right superior and inferior parathyroid glands. Additionally, I obtained them signals on the recurrent laryngeal nerves once again. Satisfied with this result, the strap muscles were closed with a running 3-0 Vicryl stitch leaving a small gap at the inferior aspect of the suture line. After the strap muscles were closed, the left superior parathyroid gland was then brought onto the field and was sharply minced into smaller pieces. This volume was halved, and these parathyroid pieces were placed into 2 pockets of the left sternohyoid muscle belly. A medium titanium clip was used to seal these pockets closed. The platysmal flaps were closed with interrupted 3-0 Vicryl. Some additional local anesthetic was infiltrated throughout the dermis and the skin was closed i n a subcuticular fashion using 4-0 Monocryl. Steri-Strips were applied. Telfa and Tegaderm were used as a dressing. The patient was then awakened from anesthetic without event and was taken to PACU for ongoing recovery. Surgical Findings: ? Grossly visualized right superior and inferior parathyroids ? Grossly visualized portion of right recurrent laryngeal nerve with strong Nims signal ? Unavoidable displacement of left superior parathyroid with frozen section confirmation of identity ? Grossly visualized, well-perfused left inferior parathyroid ? Grossly visualized portion of left recurrent regional nerve with strong Nims signal Complications Complications: No Admit VTE Documentation VTE Mechan Device Prophylaxis: SCD's
[2024-11-10] MEDS: Bupivacaine 0.25% 30 ML Vial (16:01)
--- NOTE | 2024-11-10 16:24 | PCM.POST.ANE ---
Anesthesia: Postop Eval I Current Vital Signs Temperature: 98.9 F Pulse Rate: 118 Blood Pressure: 155/77 Respiratory Rate: 18 Pulse Ox: 98 Oxygen Delivery Method: Room Air Assessment Airway patent: Yes Spontaneous unlabored respirations: Yes Mental status: Awake and Calm nausea: No Vomiting: No Anesthesia Complication: No Fluid Hydration Crystalloid volume administer (ml): 2,000 Total IV fluid infused: 2,000 Progress Note Anesthesia document: Postop Eval 1 completed: Yes
--- NOTE | 2024-11-10 16:52 | SUR.PHASEI ---
called lab regarding stat pth, awaiting result
[2024-11-10] MEDS: Labetalol 20 MG/4 ML Vial 10 MG IV ×2 (17:01→17:15)
[2024-11-10 17:13] LABS: PTHIN 34 pg/mL (11-61)
--- NOTE | 2024-11-10 17:20 | SUR.PHASEI ---
pth reported to dr. cameron; confirmation received
--- NOTE | 2024-11-10 17:22 | POSTOPAN2_ITS ---
Anesthesia Postop Eval I Sum Postop Eval Completion status Anesthesia document: Postop Eval 1 completed: Yes Anesthesia Postop Eval I Summary Anesthesia Postop Eval I Summary: Anesthesia Postop Eval I: Assessment Summary Airway patent Yes 11/10/24 16:25 [email or web address] Spontaneous unlabored Yes 11/10/24 16:25 PARATRANSIT [email or web address] respirations Mental status Awake,Calm 11/10/24 16:25 PARATRANSIT [email or web address] nausea No 11/10/24 16:25 PARATRANSIT [email or web address] Vomiting No 11/10/24 16:25 [email or web address] [email or web address] Anesthesia Postop Eval I: Fluid Summary Crystalloid volume administer 2,000 11/10/24 16:25 [email or web address] (ml) Colloids volume administered ( ml) Blood Product volume administered (ml) Total IV fluid infused 2,000 11/10/24 16:25 [email or web address] [email or web address] Anesthesia Postop Eval I: Summary Notes Anesthesia Complication No 11/10/24 16:25 [email or web address] [email or web address] Anesthesia Complication Comment: Post-operative progress note Anesthesia: Postop Eval II Evaluation Mental status: Awake and Calm Pain Level: 2 nausea: No Vomiting: No Complications Anesthesia Complication: No
--- NOTE | 2024-11-10 17:22 | PCM.POSTANE2 ---
Anesthesia Postop Eval I Sum Postop Eval Completion status Anesthesia document: Postop Eval 1 completed: Yes Anesthesia Postop Eval I Summary Anesthesia Postop Eval I Summary: Anesthesia Postop Eval I: Assessment Summary Airway patent Yes 11/10/24 16:25 [email or web address] Spontaneous unlabored Yes 11/10/24 16:25 [email or web address] respirations Mental status Awake,Calm 11/10/24 16:25 [email or web address] nausea No 11/10/24 16:25 [email or web address] Vomiting No 11/10/24 16:25 [email or web address] Anesthesia Postop Eval I: Fluid Summary Crystalloid volume administer 2,000 11/10/24 16:25 [email or web address] (ml) Colloids volume administered ( ml) Blood Product volume administered (ml) Total IV fluid infused 2,000 11/10/24 16:25 [email or web address] Anesthesia Postop Eval I: Summary Notes Anesthesia Complication No 11/10/24 16:25 [email or web address] Anesthesia Complication Comment: Post-operative progress note Anesthesia: Postop Eval II Evaluation Mental status: Awake and Calm Pain Level: 2 nausea: No Vomiting: No Complications Anesthesia Complication: No
[2024-11-10] MEDS: Acetaminophen 500 MG Tablet PO (20:04)
[2024-11-11 02:15] VITALS: BP 132/72; PULSE 76; RESP 16; TEMP 36.6; O2SAT 97
[2024-11-11] MEDS: Acetaminophen 500 MG Tablet PO (02:19)
[2024-11-11 06:15] VITALS: BP 106/50; PULSE 77; RESP 16; TEMP 36.6; O2SAT 98
[2024-11-11 06:15] LABS: Anion Gap 12 (5-15); BUN 13 mg/dL (4-19); BUN/Creat Ratio 16.8 RATIO (10-20); Calcium,Total 8.5 mg/dL (7.6-11.0); Carbon Dioxide 21.9 mmol/L (21.0-32.0); Chloride 106 mmol/L (98-108); Creatinine, Serum 0.79 mg/dL (0.70-1.20); EST Glomerular Filtration Rate 92 (>60); Estimated Creatinine Clearance 98.12 ml/min (50-250); Glucose 113 mg/dL (70-99); Potassium 4.1 mmol/L (3.3-5.1); Sodium Level 140 mmol/L (133-145)
[2024-11-11 07:26] LABS: PTHIN 34 pg/mL (11-61)
--- NOTE | 2024-11-11 08:15 | PCM.DC ---
Discharge Instructions Diet Discharge Diet: No restrictions (However recommend a liquid to soft diet initially postoperatively) DC O2, CPAP, BIPAP needs Home O2 Discharge instructions: No Dressing / Incision Discharge Activity: May Not Drive (While it remains difficult to check blind spots quickly) May shower in (days): 1 Ice area for (Minutes): 20 Lifting Restrictions: No lifting greater than 15 pounds for 2 weeks after surgery Dressing / Incision Call your doctor if your incision/area has: Continuous Slow Oozing, Sudden Increased Bleeding, Increased Pain/ Swelling, Increased Redness and Swelling at the incision site Call your doctor if you observe: Numbness or Tingling Remove Dressing in: 1 day (Please leave Steri-Strips intact until they fall off spontaneously or are taken off at your follow-up visit) Cleanse incision/area with: Soap & Water Follow Up Care Please Follow Up With: Mauri Uriostegui MD When: 10-14 days postop Test Results: Test results from this visit will be discussed in further detail at your follow-up appointment, if applicable. Discharge Plan Admission Admit Date/Time: 11/10/24 15:56 Primary Reason for Your Visit: Thyroidectomy Attending Provider: Mauri Uriostegui Primary Care Provider: Irina Sanz Discharge Orders/Prescriptions Prescriptions: New levothyroxine 137 mcg Tablet 137 mcg PO DAILY 30 Days Qty: 30 0RF Continued pravastatin 40 mg tablet 40 mg PO QHS cholecalciferol (vitamin D3) [Vitamin D3] 125 mcg (5,000 unit) tablet 125 mcg PO DAILY Discontinued methimazole 5 mg tablet 5 mg PO QHS Referrals / Follow Up: Irina Sanz PA-C [Primary Care Provider] - Disposition Disposition (needs filled in before D/C Order can be placed): Home, Self Care
--- NOTE | 2024-11-11 08:23 | PCM.DC.SUM ---
Providers Date of Admission: 11/10/24 Primary Care Physician: Irina Sanz PA-C Reason For Visit: Thyroidectomy-total with intraoperative nerve [place] Medications at Discharge Home Medications pravastatin 40 mg tablet 40 mg PO QHS CHOLESTEROL 04/01/18 cholecalciferol (vitamin D3) 125 mcg (5,000 unit) tablet (Vitamin D3) 125 mcg PO DAILY SUPPLEMENT 11/01/24 levothyroxine 137 mcg tablet 137 mcg PO DAILY 30 days #30 tabs 11/11/24 Hospital Course Operations - (Total thyroidectomy) Summary of Care Provided Hospital Course: Patient be 9-year-old female history of toxic multinodular goiter who underwent total thyroidectomy with intraoperative nerve monitoring on 11/10/2024. Procedure completed in uncomplicated fashion and she was admitted to overnight observation for monitoring of her neck and postoperative calcium monitoring. She experienced an uneventful postoperative course and her postoperative PTH checks remained within normal limits so no supplemental calcium was initiated. Her exam remains benign postoperative day 1 and her pain is controlled. Thorough review of postoperative expectations was provided and patient offers no further questions. Specifically this included instruction on wound care and administration of thyroid hormone. Will plan to see her as an outpatient in 10 to 14 days. Patient was discharged in improved condition on 11/11/2024. Physical Exam Const alert, oriented x3 and no apparent distress Constitutional Narrative: Near normal voice quality General Appearance: cooperative and comfortable Neck Neck Narrative: Incision remains dressed with postoperative dressing but there is no strikethrough. Soft tissues?particularly the suprasternal notch remains soft. No evidence of underlying hematoma Weight / BMI Weight Weight: 200 lb 9.93 oz Body Mass Index (BMI) 33.3 ABG / Lab / Microbiology Data 11/10/24 10:30 11/11/24 04:50 Laboratory: Laboratory Results - last 24 hr 11/10/24 09:48: Urine Test Negative 11/10/24 10:30: WBC 7.3, RBC 4.80, Hgb 14.2, Hct 41.0, MCV 85.4, MCH 29.6, MCHC 34.6, RDW Std Deviation 38.3, RDW Coeff of Juan 12.4, Plt Count 238, MPV 8.9, Sodium 139, Potassium 4.0, Chloride 107, Carbon Dioxide 24.0, Anion Gap 9, BUN 14, Creatinine 0.87, Estim Creat Clear Calc 89.10, Est GFR (MDRD) Non-Af 83, BUN/Creatinine Ratio 15.9, Glucose 89, Calcium 9.1, Ionized Calcium 1.23 11/10/24 16:13: PTH Intact 34 11/11/24 04:50: Sodium 140, Potassium 4.1, Chloride 106, Carbon Dioxide 21.9, Anion Gap 12, BUN 13, Creatinine 0.79, Estim Creat Clear Calc 98.12, Est GFR (MDRD) Non-Af 92, BUN/Creatinine Ratio 16.8, Glucose 113 H, Calcium 8.5, PTH Intact 34 D/C Instructions Discharge Diet: No restrictions (However recommend a liquid to soft diet initially postoperatively) May shower in (days): 1 Ice area for (Minutes): 20 Call your doctor if your incision/area has: Continuous Slow Oozing, Sudden Increased Bleeding, Increased Pain/ Swelling, Increased Redness and Swelling at the incision site Call your doctor if you observe: Numbness or Tingling Cleanse incision/area with: Soap & Water DC O2, CPAP, BIPAP Needs Home O2 Discharge instructions: No Please Follow Up With: Mauri Uriostegui MD When: 10-14 days postop Meaningful Use Info Meaningful Use Meaningful Use Diagnoses (Choose all that apply): None applicable Ischemic Stroke Statin Dosing Therapy Reference: STATIN DOSE THERAPY REFERENCE: * Patients > 75 years receive moderate or high dose statin therapy. * Patients 75 years or YOUNGER should receive HIGH intensity statin dose unless contraindicated. You will be required to document reason for non-treatment if statin daily dose does not meet guidelines. HIGH DOSE STATIN THERAPY DAILY Atorvastatin > than or = to 40 mg Rosuvastatin > than or = to 20 mg Amlodipine + Atorvastatin > than or = to 2.5/40 mg Ezetimibe + Simvastatin 10/80 mg Simvastatin 80mg Discharge Plan Admission Admit Date/Time: 11/10/24 15:56 Primary Reason for Your Visit: Thyroidectomy Attending Provider: Mauri Uriostegui Primary Care Provider: Irina Sanz Discharge Orders/Prescriptions Prescriptions: New levothyroxine 137 mcg Tablet 137 mcg PO DAILY 30 Days Qty: 30 0RF Continued pravastatin 40 mg tablet 40 mg PO QHS cholecalciferol (vitamin D3) [Vitamin D3] 125 mcg (5,000 unit) tablet 125 mcg PO DAILY Discontinued methimazole 5 mg tablet 5 mg PO QHS Referrals / Follow Up: Irina Sanz, PA-C [Primary Care Provider] - Disposition Disposition (needs filled in before D/C Order can be placed): Home, Self Care Charges/Coding Visit Charges Inpatient E&M: 88994 Disch Hosp
[2024-11-11] MEDS: Cholecalciferol (Vit D3) 125 MCG CAPSULE (5,000 UNITS) PO (08:56)
[2024-11-11] MEDS: Levothyroxine 137 MCG Tablet PO (09:02)
--- NOTE | 2024-11-11 09:20 | CASEMGMT ---
DELISA CM NOTE: Discharge order is in. Noted nutrition consult has been ordered/not done yet. Call placed to rope making machine operator, Petra, and she was made aware discharge order is in. She states will be up to see pt as soon as possible. Dain THOMPSON RN CM
--- NOTE | 2024-11-11 10:07 | PHA.DC.MC.R ---
Pharmacy [facility] has performed discharge medication reconciliation and counseling for this patient. The patient's discharge medication list was reviewed for discrepancies and discrepancies were resolved. The patient was counseled on the following discharge medications and changes in medications for homegoing were reviewed. The Reason for Use, instructions for use, and potential side effects were reviewed for all new medications. The patient's questions regarding all of their medications were answered. 1. levothyroxine 137 mcg PO daily The patient was able to verbally demonstrate an understanding of their discharge medications. Medications at Discharge Home Medications pravastatin 40 mg tablet 40 mg PO QHS CHOLESTEROL 04/01/18 cholecalciferol (vitamin D3) 125 mcg (5,000 unit) tablet (Vitamin D3) 125 mcg PO DAILY SUPPLEMENT 11/01/24 levothyroxine 137 mcg tablet 137 mcg PO DAILY 30 days #30 tabs 11/11/24
== END 2024-11-11 10:00 | disposition home or self-care (01) ==
LOC: SDC 16:04 → MS3 16:04
PROVIDERS: Anesthesiology; Admitting Provider Surgery; PCP Family Medicine; Referring Provider Surgery; Visit Provider Surgery
PROC: (CPT 60240; principal; 2024-11-10 10:45)
DX: E05.20 Thyrotoxicosis with toxic multinodular goiter without thyrotoxic crisis or storm (principal); E78.5 Hyperlipidemia, unspecified; Z79.899 Other long term (current) drug therapy
CPT/HCPCS: 60240; 60512; 00320; 36415; 80048; 81025; 82330; 83970; 85027; 88305; 88307; 88331; 99221; A4648; G0378; J2405

== ENCOUNTER → 2024-12-23 | Outpatient (CLI) | payer OTHER, SELFPAY ==
[2024-12-23 10:44] LABS: Free T3 2.7 pg/mL (2.18-3.98); T4 Total, Thyroxin 12.8 ug/dL (4.8-13.9)
== END | disposition home or self-care (01) ==
PROVIDERS: PCP Family Medicine; Referring Provider Surgery; Visit Provider Surgery
DX: Z98.890 Other specified postprocedural states (principal); Z90.89 Acquired absence of other organs
CPT/HCPCS: 36415; 84436; 84443; 84481